=== PATIENT | female | born 2005 | race Caucasian/White ===

== ENCOUNTER 2024-11-29 08:47 | Emergency (ER) | payer OTHER, SELFPAY ==
--- NOTE | 2024-11-29 08:49 | ED.URI ---
HPI - URI/Sore Throat General Chief Complaint: Upper Respiratory Infection Stated Complaint: sore throat/congestion/ears Time Seen by Provider: 11/29/24 08:56 Source: patient, RN notes reviewed and old records reviewed Mode of arrival: ambulatory Limitations: no limitations History of Present Illness HPI Narrative: 18-year-old female presents to the [facility] with concerns for a sore throat, sinus congestion and ear pressure. Symptoms started Saturday, 2 days ago. Has taken Mucinex. Has felt feverish and has taken Tylenol Reports a cough at night. Family member stated that she just started working at a [employer] program. Was wondering if there was anything the should do in regards to illness. Discussed flu shots, hand hygiene. Discussed washing hands for 30 seconds possibly wearing a mask. Discussed that being around children your immune system will have to have developed an it may take a while. Onset (ago): day(s) (2) Treatments prior to arrival: acetaminophen and cold medicine Related Data Home Medications ?Medication ?Instructions ?Recorded ?Confirmed ?Last Taken ?Type No Home Medications 11/29/24 Unknown History Allergies Allergy/AdvReac Type Severity Reaction Status Date / Time No Known Allergies Allergy Unknown Verified 11/29/24 09:03 Review of Systems Review of Systems: All systems reviewed & are unremarkable except as noted in HPI and below Constitutional: Constitutional: Reports no additional constitutional complaints ENT: Reports as per HPI, Reports otalgia, Reports nasal congestion and Reports sore throat Cardiovascular: Cardiovascular: Reports no additional cardiovascular complaints, Denies chest pain and Denies dyspnea Respiratory: Respiratory: Reports as per HPI, Denies chest congestion, Reports cough (At night) and Denies dyspnea Musculoskeletal: Musculoskeletal: Reports no additional musculoskeletal complaints Integumentary/Breasts: Skin/Breast: Reports system reviewed and no additional complaints, except as docu PMFSH Comments At the time of my signature, I reviewed and agree with the nursing past medical, surgical, social, and family history. There is no relevant family history pertinent to the patient complaint. Exam Const: General: cooperative, healthy appearing, comfortable, no acute distress, well developed, alert and well nourished Nutritional Appearance: well nourished and obese Orientation/consciousness: patient oriented x3 Limitations: no limitations HENMT: Head: normal to inspection Ears: hearing grossly normal bilaterally, external ears normal, TM's normal bilaterally, EAC's normal, mastoids normal and no periauricular adenopathy Face and sinus: normal facial exam, sinuses nontender and face symmetric Mouth: Yes Normal oral and palatal mucosa present, Yes lip normal, Yes tongue normal and Yes moist mucous membranes abnormal Throat: posterior oropharynx normal, uvula midline, postnasal drainage and no uvular edema Eyes: General: appearance normal, both eyes and all related structures Alignment and Position: alignment normal Neck: Neck: normal visual inspection, full ROM, no lymphadenopathy and no meningeal signs Chest: Chest palpation & inspection: normal inspection of the chest Resp: Effort & Inspection: normal respiratory effort and able to speak in complete sentences Auscultation: clear to auscultation bilaterally, no crackles, no rales, no rhonchi and no wheezes Cardio: Rate: regular rate Skin: General skin exam: normal color and no rashes or lesions noted Neuro: General: patient oriented x3, gait normal, moves all extremities and no meningeal signs Cognition (Neuro): normal cognition Speech: normal speech Gait exam (Neuro): Normal gait present Extrem: General: normal to inspection, full ROM, capillary refill normal and normal gait Psych: Appearance: grossly normal and well kempt Mental Status: mental status grossly normal Speech and movement: Normal speech and movement present and Clear speech present Affect: normal affect Attitude: cooperative Course Course Level of Care: Express Care Visit Vital Signs Vital signs: Vital Signs Temperature 97.4 F L 11/29/24 08:56 Pulse Rate 83 11/29/24 08:56 Respiratory Rate 16 11/29/24 08:56 Blood Pressure 146/82 H 11/29/24 08:56 Pulse Oximetry 100 11/29/24 08:56 Oxygen Delivery Room Air 11/29/24 08:56 Temperature 97.4 F L 11/29/24 08:56 Pulse Rate 83 11/29/24 08:56 Respiratory Rate 16 11/29/24 08:56 Blood Pressure 146/82 H 11/29/24 08:56 Pulse Oximetry 100 11/29/24 08:56 Oxygen Delivery Room Air 11/29/24 08:56 Reviewed MDM - URI/Sore Throat MDM Narrative Medical decision making narrative: Patient sitting in exam room. Patient is nontoxic, vitals stable. Patient presents with 2 day history of URI symptoms. Flu, COVID, strep were negative. Will send for flu culture No acute findings other than postnasal drainage noted on exam. Patient is appropriate for outpatient treatment with close follow Discharge instructions reviewed with patient, as well as provided in writing per nursing staff. The instructions also include specific and strict return/GO TO THE ER as well as f/u information. All questions have been answered, and the patient deny any further questions with discharge and discharge plan. Some parts of this dictation were generated by voice recognition software and may contain typographical and/or grammatical inaccuracies. Differential Diagnosis Differential diagnosis: Likely upper respiratory infection, otitis media, sinusitis, viral infection, bronchitis, influenza and pharyngitis Lab Data Labs: Lab Results 11/29/24 Range/Units 09:02 POC Influenza A Ag Negative (Negative) POC Influenza B Ag Negative (Negative) POC Grp A Strep Screen Negative (Negative) Reviewed Critical Care Time Critical Care Time Critical Care Time: No Discharge Plan Discharge Clinical Impression: PND (post-nasal drip) Upper respiratory infection Qualifiers: URI type: unspecified viral URI Qualified Code(s): J06.9 - Acute upper respiratory infection, unspecified Sinusitis Qualifiers: Sinusitis location: pansinusitis Chronicity: acute Recurrence: not specified as recurrent Qualified Code(s): J01.40 - Acute pansinusitis, unspecified Patient Disposition: Home Condition: Stable Instructions: Sinusitis (ED), Upper Respiratory Infection (ED), Postnasal Drip (DC) Additional Instructions: Your rapid strep swab was negative today at [facility]. A throat culture will be sent to the laboratory for further testing. If the test is positive, you will receive a phone call within 48 hours and an appropriate antibiotic will be initiated at that time. Your rapid COVID test were negative Your rapid flu test was negative Your symptoms are likely due to a viral illness, which is not treated with antibiotics. Typically viral infections last 7-10 days, can linger for couple of weeks. It is very important to treat your symptoms. Drink plenty of water, Gatorade, Pedialyte, ice pops or Jell-O. -Alternate Tylenol and Motrin per package directions for fever or pain. You can alternate every 4 hours -Antihistamine medication such as Zyrtec/Claritin/Natalia during the day can help improve symptoms. -doing daily nasal irrigations can help relieve pressure your sinuses. Things like a Neti pot -Use Flonase twice a day for 5 days then daily to help reduce the inflammation and dry up your sinuses. -You can also use Mucinex. Be sure to drink plenty of water with this medication at least 8 ounces with every dose and it is important to drink 8 to 10 glasses of water per day. Water is a natural decongestant -Eat and drink things that are easy to swallow, like tea or soup, or popsicles. -Oral rinses such as: Salt water gargles and/or may use topical anesthetic (eg. Chloraseptic spray) or lozenges to relieve dryness or throat pain). -Frequent hand washing or hand occupational health physiotherapist is one of the best ways to prevent spread of infection. -Using a vaporizer or humidifier at night will also help thin secretions and help with coughing up phlegm. -Follow up with primary care provider in 7-10 days if condition is not improving If you are having a hard time finding a physician please call our [facility] liaison at [phone]. A handout for [facility] - For new or worsening symptoms go directly to the nearest ER Patient Language: Serbian Prescriptions: No Action No Home Medications Follow-up/Referrals: UNKNOWN,DOCTOR [Non-Staff] Stand Alone Forms: Work/School Release IP Time of Disposition: 09:25
--- OUTSIDE RECORDS SUMMARY | 2024-11-29 08:55 | XMS_ITS | Clinical Summary ---
Author Organization [facility] Address [address], [address] [address] Phone Care Team Providers Care Security Police Officer Name Role Phone SrinivasLucrecia Manuel BARAJAS Primary Care Provider [phone] Allergies No known active allergies Medications Wegovy 0.25 MG/0.5ML Solution Auto-injector 0.25 mg by Subcutaneous route once a week. 1 mL 11 11/19/19 24 Active Additional Information Patient not taking.Reported on 12/09/2023 ketorolac (TORADOL) 10 MG Tablet Take 1 Tablet by mouth every 6 hours as needed for Moderate or more severe pain. 20 Tablet 04/06/19 25 Active ondansetron (ZOFRAN) 4 MG Tablet Take 1 Tablet by mouth every 8 hours as needed for Nausea - 1st line. 10 Tablet 04/06/19 25 Active tamsulosin (FLOMAX) 0.4 MG Capsule Take 1 Capsule by mouth daily. 90 Capsule 04/06/19 25 Active amphetamine-dextr oamphetamine (Adderall XR) 30 MG CAPSULE SR 24 HRIndications:Att ention deficit hyperactivity disorder (ADHD), combined type Take 1 Capsule by mouth every morning. 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 10/11/2016 S/P T&A (status post tonsillectomy and adenoidec richard) 03/23/2014 Encounters Date Type Department Care Team Description 10/30/2024 [facility] [place] [address] [place] [phone] Lucrecia Espino DO 10/19/2024 MyChart RX Renewal [facility] [place] [address] [place] [id number] Lucrecia Espino DO Medication Renewal Reviewed 09/14/2024 [facility]Chart [facility] [place] [address] [place] [address] Lucrecia Espino, Medication Renewal Reviewed from Last 3 Months Immunizations Immunization Administration Dates Next Due DTAP VACCINE, UNSPECIFIED FORMULATION 06/27/2005 DTAP-IPV 01/11/2009 DTAP/HEPB/IPV Vaccine 06/28/2004,05/03/2004,02/11 Hepatitis A Vaccine,unspecif ied Formulation 2005 Hepatitis A, Pediatric, Unsp ecified Formulation 12/06/2006 Hepatitis B Vaccine, Pediatric/adolescent 2003 Hib Vaccine,unspecified Formulation 03/14,06/28/2004,05/03/2004,02/28 Human Papillomavirus (HPV) 9 -valent Vaccine 12/20/2015,08/01/2015,05/17/2015 Influenza Vaccine Nasal 12/18/2011 Influenza Vaccine, Quadrivalent, PF 10/0 07/2022,11/16/2021,01/23/2021,11/22,04/06/2019 Influenza, Injectable, Quadrivalent 12/06/2017 Influenza,Split Virus,Trivalent,Injectable,PF 10/17/2023 MMR Vaccine 01/11/2009,03/29/2005 Meningococcal Group B OMV 02/23/2021,01/23/2021 Meningococcal Vaccine 01/23/2021,05/17/2015 Pneumococcal Vaccine Peds - 7 Valent ,06/28/2004,05/03/2004,02/28 TDAP Vaccine 12/09/2023,05/17/2015 Varicella Vaccine Live 01/11/2009,2005 Family History Medical History Relation Name Comments No Known Problems Father Hypertension Mother Relation Name Status Comments Father Alive Mother Alive Social History Tobacco Use Types Packs/Day Years Used Date Smoking Tobacco: Never Smokeless Tobacco: Never Tobacco Cessation:Counseling Given: Yes Alcohol Use Standard Drinks/Week Comments No 0 (1 standard drink = 0.6 oz pur e alcohol) [facility] Utilities Answer Date Recorded In the past 12 months has e electric, gas, oil, or water company threatened to shut off services in your home? No 10/17/2023 Social Connection and Isolation Panel Answer Date Recorded In a typical week, how many times do you talk on the phone with family, friends, or neighbors? More than three times a week 10/17/2023 How often do you get togethe r with friends or relatives? Three times a week 10/17/2023 How often do you attend chur ch or scientology services? More than 4 times per year 10/17/2023 Do you belong to any clubs o r organizations such as mandaeism groups, unions, fraternal or athletic groups, or school groups? Yes 10/17/2023 How often do you attend meet ings of the clubs or organizations you belong to? More than 4 times per year 10/17/2023 Are you , , di vorced, , never , or living with a partner? Never 10/17/2023 AUDIT-C Answer Date Recorded Q1: How often do you have a drink containing alcohol? Never 10/17/2023 Q2: How many drinks containi ng alcohol do you have on a typical day when you are drinking? Patient does not drink Q3: How often do you have si x or more drinks on one occasion? Never 10/17/2023 Overall Financial Resource Strain (CARDIA) Answe r Date Recorded How hard is it for you to pa y for the very basics like food, housing, medical care, and heating? Not very hard 10/17/2023 [facility] [place] of Occupat ional Health - Occupational Stress Questionnaire Answer Date Recorded Do you feel stress - tense, restless, nervous, or anxious, or unable to sleep at night because your mind is troubled all the time - these days? To some extent 10/17/2023 Exercise Vital Sign Answer Date Recorde d On average, how many days pe r week do you engage in moderate to strenuous exercise (like a brisk walk)? 2 days 10/17/2023 On average, how many minutes do you engage in exercise at this level? 20 min 10/17/2023 Hunger Vital Sign Answer Date Recorded Within the past 12 months, y ou worried that your food would run out before you got the money to buy more. Never true 10/17/19 24 Within the past 12 months, t he food you bought just didn't last and you didn't have money to get more. Never true 10/17/2023 PRAPARE - Transportation Answer Date Re corded In the past 12 months, has l ack of transportation kept you from medical appointments or from getting medications? No 06/2023 In the past 12 months, has l ack of transportation kept you from meetings, work, or from getting things needed for daily living? No 10/17/2023 Housing Stability Vital Sign Answer Sebastián e Recorded In the last 12 months, was t here a time when you were not able to pay the mortgage or rent on time? No 10/17/2023 Number of Times Moved in the Last Year Not on fi le 10/17/2023 At any time in the past 12 m [facility], were you homeless or living in a snf (including now)? No 10/17/2023 Sexually Active Control Partners Comments Never Comments No Sex and Gender Information Value Date Recorded Sex Assigned at Not on file Legal Sex Female 1:34 PM CDT Gender Identity Not on file Sexual Orientation Not on file Last Filed Vital Signs Vital Sign Reading Time Taken Comments Blood Pressure 142/90 04/06/2024 10:15 PM COMPLIANCE SPECIALIST Pulse 78 04/06/2024 10:15 PM COMPLIANCE SPECIALIST Temperature 36.7 C (98 F) 04/06/2024 10:15 PM COMPLIANCE SPECIALIST Respiratory Rate 18 04/06/2024 10:15 PM COMPLIANCE SPECIALIST Oxygen Saturation 99% 04/06/2024 10:15 PM COMPLIANCE SPECIALIST Inhaled Oxygen Concentration - - Weight 127 kg (280 lb) 04/06/2024 7:06 PM COMPLIANCE SPECIALIST Height 167.6 cm (5' 6) 04/06/2024 7:06 PM COMPLIANCE SPECIALIST Body Mass Index 45.19 04/06/2024 7:06 PM COMPLIANCE SPECIALIST Plan of Treatment Health Maintenance Due Date Last Done Comments Influenza Immunization (#1) 2024 09/0 06/2023, 11/16/2022, 11/16/2021, Additional history exists DTaP/Tdap/Td Immunization (8 - Td or Tdap) 12/08/2033 12/09/2023, 05/17/2015, 01/11/2009, Additional history exists Respiratory Syncytial Virus (RSV) Immunization (Adult) (1 - 1-dose 75+ series) 12/27/2078 Hepatitis B Immunization Completed 005, 05/03/2004, 02/29/2004, Additional history exists Pneumococcal Immunization Combined Aged Out 03/29/2005, 06/28/2004, 05/03/2004, Additional history exists No longer eligible based on patient's age to complete this topic Hepatitis A Immunization Discontinued 12/06/2006, 12/12 Measles Mumps Rubella (MMR) Immunization Discontinued 01/11/2009, 03/29/2005 Polio (IPV) Immunization Discontinued 009, 06/28/2004, 05/03/2004, Additional history exists Varicella Immunization Discontinued 01/11/2009, 2005 Human Papillomavirus (HPV) Immunization Completed 12/20/2015, 08/01/2015, 05/17/2015 Hepatitis C Virus (HCV) Screening Completed 11/15/2016 SARS-COV-2 Immunization Discontinued 11/06/2020, 10/16 Meningococcal Immunization (ACWY) Completed 01/23/2021, 05/17/2015 Meningococcal B Immunization Completed 02/23/2021, 01/23/2021 Rotavirus Immunization Aged Out No lo nger eligible based on patient's age to complete this topic Insurance [employer] Care Teams Security Police Officer Relationship Specialty Start Date End Date Lucrecia Espino DO [address] [facility] [place] [address] PCP - General Family Medicine 10/17/23
--- OUTSIDE RECORDS SUMMARY | 2024-11-29 08:55 | XMS_ITS | Clinical Summary ---
Author Organization [facility] Address [address] [place] [address] Care Team Providers Care Care Director Name Role Phone Natalya Doll MD Primary Care Pr ovider Nuno Suarez PT Unavailable Unavaila Isela Mistry WORKFLOW DEVELOPER Unavailable Unavailab Jesus Johnson PT Unavailable Unavailable Allergies No known active allergies Medications dextroamphetami ne-amphetamine XR (ADDERALL XR) 15 mg 24 hr capsule 0 06/27/2017 Active cholecalciferol (VITAMIN D-3) 2000 unit capsule 1 capsule (2,000 Units total) Active Active Problems Problem Noted Date Diagnosed Date Abdominal pain, generalized 11/14/2016 Cholelithiasis 11/06/2016 Overview (10/07/2017): Overview: IMO Update 11/11/2016 Obesity 10/11/2016 Closed fracture of radius 12/05/2015 S/P T&A (status post tonsillectomy and adenoidec richard) 03/23/2014 Hypertrophy of nasal turbinates 12/22/2013 Encounters Date Type Department Care Team Description 09/17/2024 1:45 PM CDT Clinical Support [facility] [place] [address] [phone] Encounter for PPD skin test reading (Primary Dx) 09/14/2024 7:30 PM CDT Office Visit [facility] [place] [address] [phone] PPD screening test (Primary Dx) 09/14/2024 7:15 PM CDT Office Visit [facility] [place] [address] [place] [address] [place] Garsia, [employer] Physical exam, pre-employment (Primary Dx) from Last 3 Months Immunizations Immunization Administration Dates Next Due PPD TEST 09/14/2024 Surgical History Surgery Date Site/Laterality Comments CHOLECYSTECTOMY TONSILLECTOMY NOSE SURGERY Medical History Medical History Date Comments ADHD (attention deficit hyperactivity disorder) Family History Medical History Relation Name Comments Unknown Family History Father Kidney disease Mother Relation Name Status Comments Father Alive Mother Alive Social History Tobacco Use Types Packs/Day Years Used Date Smoking Tobacco: Never Smokeless Tobacco: Never Alcohol Use Standard Drinks/Week Comments No 0 (1 standard drink = 0.6 oz pur e alcohol) Comments No Sex and Gender Information Value Date Recorded Sex Assigned at Not on file Legal Sex Female 11:29 PM COLLECTIONS REPRESENTATIVE Gender Identity Not on file Sexual Orientation Not on file Obstetrics History Last Filed Vital Signs Vital Sign Reading Time Taken Comments Blood Pressure 120/80 09/14/2024 7:23 PM CDT Pulse 87 09/14/2024 7:23 PM CDT Temperature 36.7 C (98.1 F) 09/14/2024 7:23 PM CDT Respiratory Rate 18 09/14/2024 7:23 PM CDT Oxygen Saturation 99% 09/14/2024 7:23 PM CDT Inhaled Oxygen Concentration - - Weight 144.2 kg (318 lb) 09/14/2024 7:23 PM CDT Height 167.6 cm (5' 6) 09/14/2024 7:23 PM CDT Body Mass Index 51.33 09/14/2024 7:23 PM CDT Plan of Treatment Health Maintenance Due Date Last Done Comments Depression Screening 2003 Hepatitis C Screening 2003 Regular Well Visit/Exam 18-64 12/27/2021 Covid-19 Vaccine (3 - 2024-2 6 season) 2024 11/06/2020, 10/16/2020 Influenza Vaccine (#1) 2024 , 11/16/2022, 11/16/2021, Additional history exists DTaP/Tdap/Td Vaccine (8 - Td or Tdap) 12/08/2033 12/09/2023, 05/17/2015, 01/11/2009, Additional history exists Hepatitis B Screening Completed 06/28/2004 , 05/03/2004, 02/29/2004, Additional history exists Pneumococcal vaccine <65 Completed 006, 06/28/2004, 05/03/2004, Additional history exists Varicella Vaccines Completed 01/11/2009, 2005 HPV Vaccines Completed 12/20/2015, 07/13, 05/17/2015 Meningococcal Vaccine Completed 01/23/2021, 016 Meningococcal B Vaccine Completed 02/23/2021, 01/23 Procedures Procedure Name Priority Date/Time Associated Diagnosis Comments PPD TEST Routine 09/17/2024 1:36 PM CDT PPD screening test from Last 3 Months Results * PPD Test (09/17/2024 1:36 PM CDT) TB Skin Test Negative Negative Induration 0 mm Other 09/17/2024 1:36 PM CDT [place] Garsia NP POINT OF CARE TEST ORDERABLES Fi nal Result from Last 3 Months Insurance [employer] OOS CIGNA [facility] MEDICAID [facility] MEDICAID [facility] Care Teams Care Director Relationship Specialty Start Date End Date Natalya Doll MD [address] [place] [address] [place] [address] PCP - General 09/20/16 Nuno Suarez, PT Physical Therapist Physical Therapy 07/23/17 Isela Cooper, WORKFLOW DEVELOPER Physical Therapist Physical Therapy 07/30/17 Jesus Umanzor, PT Physical Therapist Physical Therapy 09/13/17
[2024-11-29 08:56] VITALS: BP 146/82; PULSE 83; RESP 16; TEMP 36.3; O2SAT 100
[2024-11-29 09:15] LABS: EDSTREPNEGPOS1 Negative (Negative)
[2024-11-29 09:17] LABS: EDINFLUASCREEN Negative (Negative); EDINFLUBSCREEN Negative (Negative)
[2024-11-29 09:18] LABS: EDCOVIDSCREEN Negative (Negative)
== END 2024-11-29 09:21 | disposition home or self-care (01) ==
PROVIDERS: Emergency Provider Nurse Practitioner
DX: R09.82 Postnasal drip (principal); J06.9 Acute upper respiratory infection, unspecified; J01.40 Acute pansinusitis, unspecified; Z20.822 Contact with and (suspected) exposure to COVID-19
CPT/HCPCS: 87081; 87426; 87804; 87880; 99203; G0463